=== PATIENT | male | born 1940 | race Caucasian/White ===

== ENCOUNTER 2018-12-21 00:57 | Inpatient (IN) | payer OTHER ==
[~2018-12-21] VITALS: Ht 185.4 cm; Wt 89.1 kg
[2018-12-21] VITALS (22 sets, daily range): BP systolic 82–121
[~2018-12-21 00:57] MED LIST: CARV6.2554 PO; FERR256T PO; FURO40TA5 PO; LIP20 PO; NITSL SL; POTA10TA15 PO; SENN-153 PO; UBID200C35 PO
[2018-12-21] MEDS ORDERED: ASPIRIN 325 MG TABLET PO ONE (01:15)
[2018-12-21] MEDS ORDERED: POTA20TA83 PO (01:16)
[2018-12-21] MEDS ORDERED: ALLO100T PO (01:16)
[2018-12-21] MEDS ORDERED: TRAZ-218 PO (01:16)
[2018-12-21] MEDS ORDERED: COR3.125 PO (01:16)
[2018-12-21] MEDS ORDERED: LIP20 PO (01:16)
[2018-12-21] MEDS ORDERED: FURO80TA86 PO (01:16)
[2018-12-21] MEDS ORDERED: HYDR-3917 PO (01:16)
[2018-12-21] MEDS ORDERED: RIVA15TA PO (01:16)
[2018-12-21] MEDS ORDERED: METO2.5T6 PO (01:16)
[2018-12-21 01:28] LABS: HEMATOCRIT 29.1 % (36-54); HEMOGLOBIN 9.6 g/dL (14.0-18.0); LYMPHOCYTES # (AUTO) 0.1 K/uL (1.0-5.5); LYMPHOCYTES % (AUTO) 0.8 % (20.5-51.5); MEAN CORPUSCULAR HEMOGLOBIN 33 pg (27-31); MEAN CORPUSCULAR HGB CONC 33 % (32-36); MEAN CORPUSCULAR VOLUME 98 fL (79.0-98.0); MONOCYTES # (AUTO) 0.5 K/uL (0.0-1.0); MONOCYTES % (AUTO) 2.6 % (1.7-9.3); NEUTROPHILS # (AUTO) 17.2 K/uL (1.8-7.7); NEUTROPHILS % (AUTO) 96.6 % (40.0-70.0); RED BLOOD CELL COUNT(AUTO) 2.97 MIL/uL (4.2-6.2); RED CELL DISTRIBUTION WIDTH 15.6 % (9.0-15.0); WHITE BLOOD COUNT (AUTO) 17.8 K/uL (4.8-10.8)
[2018-12-21] MEDS ORDERED: NOREPINEPHRINE BITARTRATE 4 MG in NS 246 ML IV ONE (01:30)
[2018-12-21] MEDS ORDERED: VANCOMYCIN HCL 1,000 MG in NS 250 ML IV ONE (01:30)
[2018-12-21] MEDS ORDERED: PIPERACILLIN/TAZO 3.375 GM in NS 50 ML IV ONE (01:30)
[2018-12-21] MEDS ORDERED: NOREPINEPHRINE 4 MG/4 ML VIAL IV ONE (01:41)
[2018-12-21 01:42] LABS: PLATELET COUNT (AUTO) 87 K/uL (130-430)
[2018-12-21 01:44] LABS: ALANINE AMINOTRANSFERASE 11 U/L (12-78); ALBUMIN 2.3 g/dL (3.4-4.8); ANION GAP 14 (5-15); ASPARTATE AMINOTRANSFERASE 15 U/L (10-37); CALCIUM 8.7 mg/dL (8.4-11.0); CHLORIDE 88 mmol/L (98-107); CREATININE 4.33 mg/dL (0.55-1.30); GLUCOSE 153 mg/dL (70-99); SODIUM SERUM 129 mmol/L (136-145); TOTAL BILIRUBIN 1.6 mg/dL (0.0-1.0)
[2018-12-21 01:48] LABS: INR 1.5 (0.80-1.20); POTASSIUM 2.3 mmol/L (3.5-5.1); PROTHROMBIN TIME 15.6 SECS (9.5-12.5)
[2018-12-21 01:49] LABS: UREA NITROGEN, BLOOD 128 mg/dL (8-21)
[2018-12-21] MEDS ORDERED: PIPERACILLIN/TAZOBACTAM 3.375 GM/VIAL (ZOSYN) IV ONE (01:50)
[2018-12-21] MEDS ORDERED: VANCOMYCIN HCL 1000 MG/VIAL IV ONE (01:51)
[2018-12-21] MEDS ORDERED: KCL 20 mEq in 100 mL (PREMIX) 100 ML IV ONE (02:30)
[2018-12-21 02:43] LABS: BILIRUBIN,URINE 1+ (NEGATIVE); BLOOD, URINE 3+ (NEGATIVE); CLARITY/URINE CLEAR (CLEAR); COLOR,URINE YELLOW (YELLOW); GLUCOSE,URINE NEGATIVE (NEGATIVE); KETONES,URINE NEGATIVE (NEGATIVE); LEUKOCYTE ESTERASE ,URINE 3+ (NEGATIVE); NITRITE, URINE NEGATIVE (NEGATIVE); PH,URINE 6.5 (5.0-8.0); PROTEIN URINE 3+ (NEGATIVE)
[2018-12-21 02:47] LABS: RBC,URINE >100 /HPF (0-3); WBC,URINE >100 /HPF (0-3)
[2018-12-21 02:48] LABS: BACTERIA,URINE MANY /HPF (None Seen)
[2018-12-21] MEDS ORDERED: NACL 0.9% 1,000 ML IV ONE (03:15)
[2018-12-21] MEDS ORDERED: HYDROCORTISONE SOD SUCC 100 MG/2 ML VIAL IVP ONE (03:30)
[2018-12-21] MEDS ORDERED: NITROGLYCERIN 0.4 MG TAB.SUBL SL PRN (05:00)
[2018-12-21 06:08] LABS: BASOPHILS # (AUTO) 0.1 K/uL (0.0-0.2); BASOPHILS % (AUTO) 0.3 % (0.0-2.0); HEMATOCRIT 28.9 % (36-54); HEMOGLOBIN 9.3 g/dL (14.0-18.0); LYMPHOCYTES # (AUTO) 0.2 K/uL (1.0-5.5); LYMPHOCYTES % (AUTO) 0.6 % (20.5-51.5); MEAN CORPUSCULAR HEMOGLOBIN 32 pg (27-31); MEAN CORPUSCULAR HGB CONC 32 % (32-36); MEAN CORPUSCULAR VOLUME 98 fL (79.0-98.0); MONOCYTES # (AUTO) 0.4 K/uL (0.0-1.0); MONOCYTES % (AUTO) 1.4 % (1.7-9.3); NEUTROPHILS # (AUTO) 29.7 K/uL (1.8-7.7); NEUTROPHILS % (AUTO) 97.7 % (40.0-70.0); RED BLOOD CELL COUNT(AUTO) 2.95 MIL/uL (4.2-6.2); RED CELL DISTRIBUTION WIDTH 16.1 % (9.0-15.0)
[2018-12-21 06:10] LABS: WHITE BLOOD COUNT (AUTO) 30.4 K/uL (4.8-10.8)
[2018-12-21 06:13] LABS: PLATELET COUNT (AUTO) 84 K/uL (130-430)
[2018-12-21 06:53] LABS: ALANINE AMINOTRANSFERASE 11 U/L (12-78); ANION GAP 12 (5-15); ASPARTATE AMINOTRANSFERASE 15 U/L (10-37); CALCIUM 8.4 mg/dL (8.4-11.0); CHLORIDE 87 mmol/L (98-107); CHOLESTEROL 64 mg/dL (<200); CREATININE 3.93 mg/dL (0.55-1.30); GLUCOSE 180 mg/dL (70-99); HDL CHOLESTEROL 17 mg/dL (>45); LDL CHOLESTEROL 42 mg/dL (<100); SODIUM SERUM 125 mmol/L (136-145); TOTAL BILIRUBIN 1.6 mg/dL (0.0-1.0); TRIGLYCERIDES 75 mg/dL (30-150)
[2018-12-21] MEDS ORDERED: COMMUNICATION ORDER XX ONE (07:15)
[2018-12-21 07:20] LABS: POTASSIUM 2.4 mmol/L (3.5-5.1)
[2018-12-21 07:21] LABS: UREA NITROGEN, BLOOD 131 mg/dL (8-21)
[2018-12-21] MEDS ORDERED: POTASSIUM CHLORIDE 20 MEQ TAB.PRT.SR PO ONE (08:15)
[2018-12-21] MEDS ORDERED: KCL 40 mEq in 100 mL (PREMIX) 100 ML IV ONE (08:15)
[2018-12-21] MEDS: PIPERACILLIN/TAZOBACTAM 2.25 GM in NS 50 ML IV SCH ×4 (08:19→23:34)
[2018-12-21] MEDS: ATORVASTATIN 20 MG TABLET PO SCH (08:20)
[2018-12-21] MEDS: PANTOPRAZOLE SODIUM 40 MG TAB PO SCH (08:20)
[2018-12-21] MEDS ORDERED: POTASSIUM CHLORIDE 40 MEQ in NS 250 ML IV ONE (08:30)
[2018-12-21] MEDS ORDERED: NITROGLYCERIN 0.4 MG TAB.SUBL SL SCH (08:30)
[2018-12-21] MEDS ORDERED: SENNOSIDES 8.6 MG TABLET PO PRN (08:30)
[2018-12-21] MEDS ORDERED: traZODone HCL 50 MG TABLET (DESYREL) PO PRN (08:30)
[2018-12-21] MEDS ORDERED: ASPIRIN 325 MG TABLET PO SCH (09:00)
[2018-12-21] MEDS ORDERED: NACL 0.9% 1,000 ML IV SCH (09:00)
[2018-12-21] MEDS ORDERED: ENOXAPARIN SODIUM 30 MG/0.3 ML SYRINGE SUBCUT SCH ×2 (09:00→21:00)
[2018-12-21] MEDS ORDERED: ONDANSETRON HCL 4 MG/2 ML VIAL IVP PRN (09:00)
[2018-12-21] MEDS ORDERED: CARVEDILOL 3.125 MG TABLET (COREG) PO SCH (09:00)
[2018-12-21] MEDS: ALLOPURINOL 100 MG TABLET (ZYLOPRIM) PO SCH (09:09)
[2018-12-21] MEDS ORDERED: ASPIRIN 81 MG TABLET(ECOTRIN) PO SCH (09:15)
[2018-12-21] MEDS ORDERED: KCL 20 mEq in NS 1000 mL 1,000 ML IV SCH ×2 (10:45→14:45)
[2018-12-21] MEDS ORDERED: ASPIRIN 81 MG TABLET(ECOTRIN) PO ONE (11:15)
[2018-12-21 15:08] LABS: ANION GAP 12 (5-15); CALCIUM 8.1 mg/dL (8.4-11.0); CHLORIDE 92 mmol/L (98-107); CREATININE 4.11 mg/dL (0.55-1.30); GLUCOSE 315 mg/dL (70-99); POTASSIUM 3.5 mmol/L (3.5-5.1); SODIUM SERUM 129 mmol/L (136-145)
[2018-12-21 15:13] LABS: UREA NITROGEN, BLOOD 125 mg/dL (8-21)
[2018-12-21] MEDS ORDERED: *CUBICIN 6 MG/KG Q24H/PHARMACY XX PRN (15:15)
[2018-12-21 15:18] LABS: ALANINE AMINOTRANSFERASE 10 U/L (12-78); ASPARTATE AMINOTRANSFERASE 13 U/L (10-37); TOTAL BILIRUBIN 1.3 mg/dL (0.0-1.0)
[2018-12-21] MEDS: NOREPINEPHRINE BITARTRATE 4 MG in NS 246 ML IV PRN ×2 (15:53→21:23)
[2018-12-21] MEDS: DAPTOmycin 500 MG in NS 50 ML IV SCH (16:02)
[2018-12-21] MEDS: RIVAROXABAN 15 MG TABLET PO SCH (17:27)
[2018-12-21 18:50] LABS: ALANINE AMINOTRANSFERASE 11 U/L (12-78); ALBUMIN 2.2 g/dL (3.4-4.8); ANION GAP 9 (5-15); ASPARTATE AMINOTRANSFERASE 12 U/L (10-37); CALCIUM 8.6 mg/dL (8.4-11.0); CHLORIDE 90 mmol/L (98-107); CREATININE 4.06 mg/dL (0.55-1.30); GLUCOSE 258 mg/dL (70-99); POTASSIUM 3.1 mmol/L (3.5-5.1); SODIUM SERUM 124 mmol/L (136-145); TOTAL BILIRUBIN 1.3 mg/dL (0.0-1.0)
[2018-12-21 18:54] LABS: UREA NITROGEN, BLOOD 125 mg/dL (8-21)
[2018-12-21] MEDS: POTASSIUM CHLORIDE 40 MEQ in NACL 0.9% 1,000 ML IV SCH (21:01)
[2018-12-22] VITALS (24 sets, daily range): BP systolic 94–129
[2018-12-22] MEDS ORDERED: NOREPINEPHRINE 4 MG/4 ML VIAL IV ONE (03:12)
[2018-12-22] MEDS: NOREPINEPHRINE BITARTRATE 4 MG in NS 246 ML IV PRN ×3 (03:46→20:38)
[2018-12-22] MEDS: PIPERACILLIN/TAZOBACTAM 2.25 GM in NS 50 ML IV SCH ×3 (05:31→18:12)
[2018-12-22 06:41] LABS: BASOPHILS % (AUTO) 0.2 % (0.0-2.0); EOSINOPHILS % (AUTO) 0.1 % (0.0-4.0); HEMATOCRIT 30.1 % (36-54); HEMOGLOBIN 9.7 g/dL (14.0-18.0); LYMPHOCYTES # (AUTO) 0.6 K/uL (1.0-5.5); LYMPHOCYTES % (AUTO) 3.2 % (20.5-51.5); MEAN CORPUSCULAR HEMOGLOBIN 32 pg (27-31); MEAN CORPUSCULAR HGB CONC 32 % (32-36); MEAN CORPUSCULAR VOLUME 98 fL (79.0-98.0); MONOCYTES # (AUTO) 0.8 K/uL (0.0-1.0); MONOCYTES % (AUTO) 4.8 % (1.7-9.3); NEUTROPHILS % (AUTO) 91.7 % (40.0-70.0); PLATELET COUNT (AUTO) 96 K/uL (130-430); RED BLOOD CELL COUNT(AUTO) 3.06 MIL/uL (4.2-6.2); RED CELL DISTRIBUTION WIDTH 15.8 % (9.0-15.0); WHITE BLOOD COUNT (AUTO) 17.5 K/uL (4.8-10.8)
[2018-12-22 06:52] LABS: ALANINE AMINOTRANSFERASE 11 U/L (12-78); ALBUMIN 2.2 g/dL (3.4-4.8); ANION GAP 9 (5-15); ASPARTATE AMINOTRANSFERASE 10 U/L (10-37); CALCIUM 8.9 mg/dL (8.4-11.0); CHLORIDE 95 mmol/L (98-107); CHOLESTEROL 75 mg/dL (<200); CREATININE 3.65 mg/dL (0.55-1.30); GLUCOSE 164 mg/dL (70-99); HDL CHOLESTEROL 22 mg/dL (>45); LDL CHOLESTEROL 47 mg/dL (<100); POTASSIUM 3.1 mmol/L (3.5-5.1); SODIUM SERUM 132 mmol/L (136-145); TOTAL BILIRUBIN 1.2 mg/dL (0.0-1.0); TRIGLYCERIDES 63 mg/dL (30-150)
[2018-12-22 07:18] LABS: UREA NITROGEN, BLOOD 121 mg/dL (8-21)
[2018-12-22] MEDS ORDERED: POTASSIUM CHLORIDE 20 MEQ/PKT PACKET PO ONE (08:15)
[2018-12-22] MEDS ORDERED: HYDROCORTISONE SOD SUCC 100 MG/2 ML VIAL IVP ONE (09:00)
[2018-12-22] MEDS: HYDROCORTISONE SOD SUCC 100 MG/2 ML VIAL IVP SCH ×2 (12:10→18:13)
[2018-12-22] MEDS: ALLOPURINOL 100 MG TABLET (ZYLOPRIM) PO SCH (15:41)
[2018-12-22] MEDS: ATORVASTATIN 20 MG TABLET PO SCH (15:41)
[2018-12-22] MEDS: PANTOPRAZOLE SODIUM 40 MG TAB PO SCH (15:41)
[2018-12-22] MEDS: ASPIRIN 81 MG TABLET(ECOTRIN) PO SCH (15:41)
[2018-12-22] MEDS: DAPTOmycin 500 MG in NS 50 ML IV SCH (16:23)
[2018-12-22] MEDS: RIVAROXABAN 15 MG TABLET PO SCH (20:35)
[2018-12-22] MEDS: POTASSIUM CHLORIDE 40 MEQ in NACL 0.9% 1,000 ML IV SCH (20:42)
[2018-12-23] VITALS (24 sets, daily range): BP systolic 83–102
[2018-12-23] MEDS ORDERED: VANCOMYCIN HCL 1,250 MG in NS 250 ML IV SCH ×2
[2018-12-23] MEDS: HYDROCORTISONE SOD SUCC 100 MG/2 ML VIAL IVP SCH ×4 (00:03→22:54)
[2018-12-23] MEDS: PIPERACILLIN/TAZOBACTAM 2.25 GM in NS 50 ML IV SCH ×5 (00:04→22:54)
[2018-12-23 00:24] LABS: PROSTATE SPECIFIC AG TOTAL 0.6 ng/mL (0.0-4.0)
[2018-12-23 01:21] LABS: % FREE PSA 13.3 % (.); FREE PSA 0.08 ng/mL
[2018-12-23 06:21] LABS: BASOPHILS % (AUTO) 0.1 % (0.0-2.0); HEMATOCRIT 24.8 % (36-54); LYMPHOCYTES # (AUTO) 0.2 K/uL (1.0-5.5); LYMPHOCYTES % (AUTO) 2.4 % (20.5-51.5); MEAN CORPUSCULAR HEMOGLOBIN 32 pg (27-31); MEAN CORPUSCULAR HGB CONC 32 % (32-36); MEAN CORPUSCULAR VOLUME 100 fL (79.0-98.0); MONOCYTES # (AUTO) 0.2 K/uL (0.0-1.0); MONOCYTES % (AUTO) 2.6 % (1.7-9.3); NEUTROPHILS % (AUTO) 94.9 % (40.0-70.0); RED BLOOD CELL COUNT(AUTO) 2.49 MIL/uL (4.2-6.2); RED CELL DISTRIBUTION WIDTH 16.1 % (9.0-15.0); WHITE BLOOD COUNT (AUTO) 8.4 K/uL (4.8-10.8)
[2018-12-23 06:29] LABS: PLATELET COUNT (AUTO) 66 K/uL (130-430)
[2018-12-23 06:41] LABS: ALANINE AMINOTRANSFERASE 10 U/L (12-78); ALBUMIN 1.9 g/dL (3.4-4.8); ANION GAP 9 (5-15); ASPARTATE AMINOTRANSFERASE 8 U/L (10-37); CHLORIDE 102 mmol/L (98-107); CHOLESTEROL 73 mg/dL (<200); GLUCOSE 248 mg/dL (70-99); HDL CHOLESTEROL 22 mg/dL (>45); LDL CHOLESTEROL 46 mg/dL (<100); POTASSIUM 3.5 mmol/L (3.5-5.1); SODIUM SERUM 138 mmol/L (136-145); TOTAL BILIRUBIN 0.9 mg/dL (0.0-1.0); TRIGLYCERIDES 52 mg/dL (30-150)
[2018-12-23 06:56] LABS: UREA NITROGEN, BLOOD 116 mg/dL (8-21)
[2018-12-23] MEDS: ASPIRIN 81 MG TABLET(ECOTRIN) PO SCH (09:59)
[2018-12-23] MEDS: PANTOPRAZOLE SODIUM 40 MG TAB PO SCH (09:59)
[2018-12-23] MEDS: ALLOPURINOL 100 MG TABLET (ZYLOPRIM) PO SCH (09:59)
[2018-12-23] MEDS: ATORVASTATIN 20 MG TABLET PO SCH (09:59)
[2018-12-23] MEDS: DAPTOmycin 500 MG in NS 50 ML IV SCH (15:43)
[2018-12-23] MEDS: POTASSIUM CHLORIDE 40 MEQ in NACL 0.9% 1,000 ML IV SCH ×2 (17:25→22:53)
[2018-12-23] MEDS: RIVAROXABAN 15 MG TABLET PO SCH (18:36)
[2018-12-23] MEDS: NOREPINEPHRINE BITARTRATE 4 MG in NS 246 ML IV PRN (23:03)
[2018-12-24] VITALS (25 sets, daily range): BP systolic 84–131
[2018-12-24] MEDS: PIPERACILLIN/TAZOBACTAM 2.25 GM in NS 50 ML IV SCH ×4 (05:19→23:36)
[2018-12-24 06:07] LABS: BASOPHILS % (AUTO) 0.1 % (0.0-2.0); HEMATOCRIT 24.1 % (36-54); HEMOGLOBIN 7.8 g/dL (14.0-18.0); LYMPHOCYTES # (AUTO) 0.3 K/uL (1.0-5.5); LYMPHOCYTES % (AUTO) 2.6 % (20.5-51.5); MEAN CORPUSCULAR HEMOGLOBIN 32 pg (27-31); MEAN CORPUSCULAR HGB CONC 32 % (32-36); MEAN CORPUSCULAR VOLUME 100 fL (79.0-98.0); MONOCYTES # (AUTO) 0.2 K/uL (0.0-1.0); MONOCYTES % (AUTO) 2.1 % (1.7-9.3); NEUTROPHILS # (AUTO) 9.6 K/uL (1.8-7.7); NEUTROPHILS % (AUTO) 95.2 % (40.0-70.0); PLATELET COUNT (AUTO) 50 K/uL (130-430); RED BLOOD CELL COUNT(AUTO) 2.42 MIL/uL (4.2-6.2); WHITE BLOOD COUNT (AUTO) 10.1 K/uL (4.8-10.8)
[2018-12-24] MEDS: HYDROCORTISONE SOD SUCC 100 MG/2 ML VIAL IVP SCH ×3 (06:13→23:08)
[2018-12-24 06:39] LABS: ALANINE AMINOTRANSFERASE 9 U/L (12-78); ALBUMIN 2.1 g/dL (3.4-4.8); ASPARTATE AMINOTRANSFERASE 8 U/L (10-37); CALCIUM 9.4 mg/dL (8.4-11.0); CHOLESTEROL 79 mg/dL (<200); CREATININE 2.81 mg/dL (0.55-1.30); GLUCOSE 178 mg/dL (70-99); HDL CHOLESTEROL 28 mg/dL (>45); LDL CHOLESTEROL 46 mg/dL (<100); TOTAL BILIRUBIN 0.8 mg/dL (0.0-1.0); TRIGLYCERIDES 41 mg/dL (30-150)
[2018-12-24 06:43] LABS: ANION GAP 5 (5-15); CHLORIDE 101 mmol/L (98-107); POTASSIUM 4.2 mmol/L (3.5-5.1); SODIUM SERUM 135 mmol/L (136-145)
[2018-12-24 07:01] LABS: UREA NITROGEN, BLOOD 104 mg/dL (8-21)
[2018-12-24] MEDS: PANTOPRAZOLE SODIUM 40 MG TAB PO SCH (08:23)
[2018-12-24] MEDS: ATORVASTATIN 20 MG TABLET PO SCH (08:23)
[2018-12-24] MEDS: ALLOPURINOL 100 MG TABLET (ZYLOPRIM) PO SCH (08:23)
[2018-12-24] MEDS: ASPIRIN 81 MG TABLET(ECOTRIN) PO SCH (08:24)
[2018-12-24] MEDS: RIVAROXABAN 15 MG TABLET PO SCH (18:37)
[2018-12-24] MEDS: POTASSIUM CHLORIDE 40 MEQ in NACL 0.9% 1,000 ML IV SCH (18:38)
[2018-12-24] MEDS ORDERED: FUROSEMIDE 40 MG/4 ML VIAL ONE ×2 (21:02→23:04)
[2018-12-24] MEDS ORDERED: FUROSEMIDE 40 MG/4 ML VIAL IVP ONE ×2 (22:00→23:00)
[2018-12-24] MEDS ORDERED: DILTIAZEM HCL 125 MG in D5W 100 ML IV SCH (23:00)
[2018-12-24] MEDS ORDERED: DILTIAZEM HCL 25 MG/5 ML VIAL IVP ONE (23:00)
[2018-12-24] MEDS ORDERED: DILTIAZEM HCL 25 MG/5 ML VIAL ONE (23:03)
[2018-12-24] MEDS ORDERED: DILTIAZEM HCL 125 MG/25 ML VIAL IV ONE (23:04)
[2018-12-25] VITALS (24 sets, daily range): BP systolic 88–127
[2018-12-25 05:42] LABS: ANION GAP 6 (5-15); CALCIUM 9.5 mg/dL (8.4-11.0); CHLORIDE 102 mmol/L (98-107); GLUCOSE 237 mg/dL (70-99); POTASSIUM 5.4 mmol/L (3.5-5.1); SODIUM SERUM 135 mmol/L (136-145)
[2018-12-25 06:00] LABS: UREA NITROGEN, BLOOD 109 mg/dL (8-21)
[2018-12-25] MEDS: PIPERACILLIN/TAZOBACTAM 2.25 GM in NS 50 ML IV SCH ×4 (06:07→23:23)
[2018-12-25] MEDS: HYDROCORTISONE SOD SUCC 100 MG/2 ML VIAL IVP SCH ×3 (06:07→23:22)
[2018-12-25 06:34] LABS: HEMATOCRIT 27.3 % (36-54); HEMOGLOBIN 8.3 g/dL (14.0-18.0); MEAN CORPUSCULAR HEMOGLOBIN 31 pg (27-31); MEAN CORPUSCULAR HGB CONC 31 % (32-36); MEAN CORPUSCULAR VOLUME 102 fL (79.0-98.0); PLATELET COUNT (AUTO) 86 K/uL (130-430); RED BLOOD CELL COUNT(AUTO) 2.68 MIL/uL (4.2-6.2); RED CELL DISTRIBUTION WIDTH 16.1 % (9.0-15.0)
[2018-12-25 07:17] LABS: WHITE BLOOD COUNT (AUTO) 38.9 K/uL (4.8-10.8)
[2018-12-25] MEDS: ALLOPURINOL 100 MG TABLET (ZYLOPRIM) PO SCH (08:27)
[2018-12-25] MEDS: ATORVASTATIN 20 MG TABLET PO SCH (08:27)
[2018-12-25] MEDS: PANTOPRAZOLE SODIUM 40 MG TAB PO SCH (08:27)
[2018-12-25] MEDS: ASPIRIN 81 MG TABLET(ECOTRIN) PO SCH (08:28)
[2018-12-25] MEDS ORDERED: FUROSEMIDE 20 MG/2 ML VIAL IVP ONE (08:45)
[2018-12-25 08:51] LABS: BAND % (MANUAL) 5 % (0-6); BASOPHILS % (MANUAL) 0 % (0-2); EOSINOPHILS % (MANUAL) 0 % (0-7); LYMPHOCYTES % (MANUAL) 2 % (20-46); MONOCYTES % (MANUAL) 3 % (0-11)
[2018-12-25] MEDS: FLUCONAZOLE 200 mg/ NS 100 ML IV SCH (12:30)
[2018-12-25] MEDS ORDERED: VANCOMYCIN HCL 1 GM/NS PREMIX 250 ML IV ONE (13:00)
[2018-12-25] MEDS ORDERED: FUROSEMIDE 40 MG/4 ML VIAL IVP ONE (15:30)
[2018-12-25 15:40] LABS: BILIRUBIN,URINE NEGATIVE (NEGATIVE); BLOOD, URINE 3+ (NEGATIVE); CLARITY/URINE CLOUDY (CLEAR); COLOR,URINE RED (YELLOW); GLUCOSE,URINE NEGATIVE (NEGATIVE); KETONES,URINE NEGATIVE (NEGATIVE); NITRITE, URINE NEGATIVE (NEGATIVE); PH,URINE 5.5 (5.0-8.0); PROTEIN URINE 2+ (NEGATIVE); UROBILINOGEN,URINE 0.2 (0.2-1.0)
[2018-12-25 15:41] LABS: LEUKOCYTE ESTERASE ,URINE 3+ (NEGATIVE)
[2018-12-25 15:42] LABS: BACTERIA,URINE FEW /HPF (None Seen); RBC,URINE >100 /HPF (0-3); WBC,URINE >100 /HPF (0-3)
[2018-12-25] MEDS: 0.45% NACL 1,000 ML IV SCH (16:26)
[2018-12-25] MEDS: RIVAROXABAN 15 MG TABLET PO SCH (17:38)
[2018-12-25] MEDS: DILTIAZEM HCL 30 MG TABLET PO SCH (23:22)
[2018-12-26] VITALS (19 sets, daily range): BP systolic 84–122
[2018-12-26 05:27] LABS: BASOPHILS # (AUTO) 0.1 K/uL (0.0-0.2); BASOPHILS % (AUTO) 0.4 % (0.0-2.0); HEMATOCRIT 22.4 % (36-54); LYMPHOCYTES # (AUTO) 0.4 K/uL (1.0-5.5); MEAN CORPUSCULAR HEMOGLOBIN 32 pg (27-31); MEAN CORPUSCULAR HGB CONC 31 % (32-36); MEAN CORPUSCULAR VOLUME 101 fL (79.0-98.0); MONOCYTES # (AUTO) 0.4 K/uL (0.0-1.0); MONOCYTES % (AUTO) 2.2 % (1.7-9.3); NEUTROPHILS # (AUTO) 17.7 K/uL (1.8-7.7); NEUTROPHILS % (AUTO) 95.4 % (40.0-70.0); PLATELET COUNT (AUTO) 55 K/uL (130-430); RED BLOOD CELL COUNT(AUTO) 2.22 MIL/uL (4.2-6.2); RED CELL DISTRIBUTION WIDTH 16.2 % (9.0-15.0); WHITE BLOOD COUNT (AUTO) 18.5 K/uL (4.8-10.8)
[2018-12-26 05:50] LABS: ANION GAP 8 (5-15); CALCIUM 9.2 mg/dL (8.4-11.0); CHLORIDE 103 mmol/L (98-107); CREATININE 2.62 mg/dL (0.55-1.30); GLUCOSE 176 mg/dL (70-99); POTASSIUM 4.3 mmol/L (3.5-5.1); SODIUM SERUM 140 mmol/L (136-145)
[2018-12-26 05:57] LABS: ALANINE AMINOTRANSFERASE 13 U/L (12-78); ASPARTATE AMINOTRANSFERASE 14 U/L (10-37); TOTAL BILIRUBIN 0.9 mg/dL (0.0-1.0)
[2018-12-26 06:02] LABS: UREA NITROGEN, BLOOD 109 mg/dL (8-21)
[2018-12-26] MEDS: PIPERACILLIN/TAZOBACTAM 2.25 GM in NS 50 ML IV SCH ×3 (06:13→17:49)
[2018-12-26] MEDS: DILTIAZEM HCL 30 MG TABLET PO SCH ×2 (06:14→14:00)
[2018-12-26] MEDS: HYDROCORTISONE SOD SUCC 100 MG/2 ML VIAL IVP SCH ×2 (06:14→14:24)
[2018-12-26] MEDS: ASPIRIN 81 MG TABLET(ECOTRIN) PO SCH (08:23)
[2018-12-26] MEDS: ALLOPURINOL 100 MG TABLET (ZYLOPRIM) PO SCH (08:23)
[2018-12-26] MEDS: ATORVASTATIN 20 MG TABLET PO SCH (08:24)
[2018-12-26] MEDS: PANTOPRAZOLE SODIUM 40 MG TAB PO SCH (08:24)
[2018-12-26 10:21] LABS: VANCOMYCIN,RANDOM 12.2 ug/mL
[2018-12-26] MEDS: FLUCONAZOLE 200 mg/ NS 100 ML IV SCH (11:39)
[2018-12-26] MEDS ORDERED: VANCOMYCIN HCL 1,000 MG in NS 250 ML IV SCH (13:00)
[2018-12-26] MEDS: 0.45% NACL 1,000 ML IV SCH (14:24)
[2018-12-26] MEDS ORDERED: MORPHINE 4 MG/ML INJ. SYRINGE IVP PRN (15:15)
[2018-12-26] MEDS: RIVAROXABAN 15 MG TABLET PO SCH (17:46)
== END 2018-12-26 19:52 | disposition expired | DRG 871 ==
LOC: SED 00:57 → SIC 03:50
PROVIDERS: ADMIT Internal Medicine; ATTEND Internal Medicine
PROC: 02HV33Z Insertion of Infusion Device into Superior Vena Cava, Percutaneous Approach (ICD-10-PCS; 2018-12-21)
PROC: 30233N1 Transfusion of Nonautologous Red Blood Cells into Peripheral Vein, Percutaneous Approach (ICD-10-PCS; principal; 2018-12-26)
DX: A40.8 Other streptococcal sepsis (principal); R65.21 Severe sepsis with septic shock; J96.01 Acute respiratory failure with hypoxia; N12 Tubulo-interstitial nephritis, not specified as acute or chronic; N17.9 Acute kidney failure, unspecified; E87.1 Hypo-osmolality and hyponatremia; N10 Acute pyelonephritis; Q60.0 Renal agenesis, unilateral; N39.0 Urinary tract infection, site not specified; Z79.01 Long term (current) use of anticoagulants; I11.0 Hypertensive heart disease with heart failure; I48.2 Chronic atrial fibrillation; I50.9 Heart failure, unspecified; D64.9 Anemia, unspecified; E78.5 Hyperlipidemia, unspecified; N40.0 Benign prostatic hyperplasia without lower urinary tract symptoms; Z87.442 Personal history of urinary calculi; Z90.5 Acquired absence of kidney; Z95.2 Presence of prosthetic heart valve; L89.109 Pressure ulcer of unspecified part of back, unspecified stage; M10.9 Gout, unspecified; I37.1 Nonrheumatic pulmonary valve insufficiency; Z66 Do not resuscitate; B96.5 Pseudomonas (aeruginosa) (mallei) (pseudomallei) as the cause of diseases classified elsewhere
CPT/HCPCS: 36415; 36600; 71045; 76770; 80048; 80053; 80061; 80202-TC; 81000-TC; 82550-TC; 82803-TC; 82962; 83605; 83880; 84153; 84484; 85007; 85025; 85027; 85379; 85610-TC; 86886; 86900; 86901; 86920; 87040-TC; 87081; 87086; 87186-TC; 93005; 93306; 96365; 96366; 96368; 96375; 99285; C1751; J0878; J1450; J1650; J1720; J1940; J2543; J3370; J3480; J3490; J7030; J7050; J7060; P9021